=== PATIENT | female | born 1995 | race Caucasian/White ===

== ENCOUNTER 2021-10-23 16:12 | Observation (INO) ==
[2021-10-23] MEDS ORDERED: Acetaminophen IV 1,000 MG/100 ML BAG IVPB ONE (23:34)
[2021-10-23] MEDS ORDERED: Simethicone 80 MG TAB.CHEW PO PRN (23:42)
[2021-10-23] MEDS ORDERED: Ondansetron 4 MG/2 ML VIAL IVP PRN (23:42)
[2021-10-23] MEDS ORDERED: cefTRIAXone 1,000 MG in 0.9 % Sodium Chloride 10 ML IVPB SCH (23:45)
[2021-10-24] MEDS: Ringers Solution, Lactated 1,000 ML IVC SCH ×2 (00:01→07:44)
[2021-10-24] MEDS: Ketorolac 30 MG/ML VIAL IVP SCH ×3 (00:02→07:51)
[2021-10-24 02:29] LABS: Chlamydia Trachomatis DNA Ur DETECTED (Not Detect)
[2021-10-24 04:43] LABS: Basophils % 0.2 %; Eosinophils # 0.4 K/mcL (0.0-0.6); Eosinophils % 2.2 %; Hematocrit 29.6 % (35.3-44.9); Hemoglobin 10.4 g/dL (11.5-15.4); Immature Granulocytes % 0.6 % (0-4); Lymphocytes # 0.9 K/mcL (0.6-4.6); Lymphocytes % 5.1 %; Mean Corpuscular HGB Conc 35.1 g/dL (31.6-35.5); Mean Corpuscular Hemoglobin 29.6 pg (28.0-33.3); Mean Corpuscular Volume 84.3 fL (83.0-100.0); Mean Platelet Volume 10.7 fL (9.4-12.4); Monocytes % 5.5 %; Neutrophils # 14.9 K/mcL (1.6-8.9); Platelet Count 199 K/mcL (140-400); Red Blood Count 3.51 M/mcL (3.82-4.97); Red Cell Distribution Width 12.5 % (11.5-14.5); Segmented Neutrophils % 86.4 %; White Blood Count 17.2 K/mcL (4.3-11.1)
[2021-10-24 04:59] LABS: Alanine Aminotransferase 9 Units/L (7-52); Albumin 2.9 g/dL (3.5-5.7); Albumin/Globulin Ratio 0.9 (1.1-2.2); Alkaline Phosphatase 111 Units/L (34-104); Aspartate Amino Transferase 15 Units/L (13-39); BUN/Creatinine Ratio 17 (6-26); Bilirubin,Total 0.7 mg/dL (0.3-1.0); Blood Urea Nitrogen 15 mg/dL (6-20); Calcium 7.9 mg/dL (8.6-10.3); Carbon Dioxide 24 mEq/L (23-29); Chloride 96 mEq/L (98-107); Globulin 3.1 g/dL (2.4-3.5); Glucose 99 mg/dL (70-105); Osmolality,Calculated 267 (280-300); Potassium 3.3 mEq/L (3.5-5.1); Sodium 128 mEq/L (136-145); eGFR For African Americans > 60 (> 60); eGFR For Non-African Americans > 60 (> 60)
[2021-10-24] MEDS ORDERED: MetroNIDAZOLE 500 MG/100 ML 500 MG/100 ML BAG IVPB SCH (06:00)
[2021-10-24] MEDS ORDERED: Famotidine 20 MG/2 ML VIAL IVP SCH (06:00)
[2021-10-24] MEDS ORDERED: Doxycycline 100 MG in 0.9 % Sodium Chloride Mini Bag 100 ML IVPB SCH (06:00)
[2021-10-24] MEDS: Ibuprofen 600 MG TABLET PO PRN ×2 (08:50→15:13)
[2021-10-24] MEDS ORDERED: Nicotine 14 MG PATCH.TD24 TD SCH (10:00)
[2021-10-24 11:58] VITALS: BP 104/64; PULSE 94; TEMP 98; O2SAT 100
== END 2021-10-24 17:00 | disposition left against medical advice (07) ==
LOC: 1NENUPED
PROVIDERS: ADMIT Obstetrics & Gynecology; ATTEND Obstetrics & Gynecology